=== PATIENT | female | born 1935 | race Caucasian/White ===

== ENCOUNTER → 2017-01-18 | Outpatient (CLI) | payer MEDICARE, OTHER ==
[~2017-01-18] MED LIST: ACET-2321 PO; AMIO200T2 PO; ASPI81TA2 PO; ATOR20TA59 PO; CEPH-583 PO; CETI-269 PO; CHOL200024 PO; CLOP75TA33 PO; FURO40TA5 PO; HYDR-4246 PO; METO25TA6 PO; MULT1TAB69 PO; POTA10CA37 PO; SPIR25TA4 PO; THYR30TA2 PO; WARF4TAB6 PO
== END ==
LOC: WC.BC 08:47
DX: Z12.31 Encounter for screening mammogram for malignant neoplasm of breast (principal); N64.89 Other specified disorders of breast
CPT/HCPCS: 77063; G0202